=== PATIENT | male | born 1940 | race Caucasian/White ===

== ENCOUNTER 2017-08-27 06:08 | Inpatient (IN) | payer MEDICARE, MEDICAID ==
[~2017-08-27] VITALS: Ht 180.3 cm; Wt 77.7 kg
[~2017-08-27 06:08] MED LIST: ACET-1600 PO; ALPR-475 PO; AMOX-291 PO; CAPT25TA3 PO; CHOL5000 PO; DULO30CA2 PO; FURO-93 PO; HEPA50002 SQ; MORP60TA34 PO; ONDA4TAB13 SL; OXYC20TA2 PO; SENN-87 PO; TEMA15CA6 PO
[2017-08-27] MEDS ORDERED: SODIUM CHLORIDE FLUSH 10ML SYR IVF ONE (07:00)
[2017-08-27 07:47] LABS: BASOPHILS # (AUTO) 0.02 x10^3/uL (0-0.1); BASOPHILS % (AUTO) 0 % (0-1); EOSINOPHILS # (AUTO) 0.03 x10^3/uL (0-0.4); EOSINOPHILS % (AUTO) 0 % (1-7); LYMPHOCYTES % (AUTO) 6 % (22-44); MD NO; MEAN CORPUSCULAR VOLUME 90.8 fL (81-97); MEAN PLATELET VOLUME 9.1 fL (7.4-10.4); MONOCYTES # (AUTO) 0.46 x10^3/uL (0.2-0.8); MONOCYTES % (AUTO) 4 % (2-9); NEUTROPHILS # (AUTO) 10.45 x10^3/uL (1.8-6.8); NEUTROPHILS % (AUTO) 90 % (42-75); PLATELET COUNT 199 x10^3/uL (130-400); RED CELL DISTRIBUTION WIDTH 16.5 % (9.4-14.8)
[2017-08-27 07:57] LABS: ANION GAP 6 mmol/L (5-15); CALCIUM 8.8 mg/dL (8.5-10.1); CHLORIDE 103 mmol/L (98-107); CREATININE 0.95 mg/dL (0.7-1.3)
[2017-08-27 07:58] LABS: ACETONE, SERUM Negative (Negative)
[2017-08-27] MEDS ORDERED: OXYcodone/APAP 5/325MG TABLET PO ONE (08:00)
[2017-08-27] MEDS ORDERED: OXYcodone/APAP 5/325MG TABLET ONE (08:01)
[2017-08-27 08:02] LABS: CULTURE INDICATED? YES; MICROSCOPIC INDICATED
[2017-08-27] MEDS ORDERED: CEFTRIAXONE PMX 1GM/50ML 50 ML IV ONE (08:30)
[2017-08-27] MEDS ORDERED: CEFTRIAXONE PMX 1GM/50ML 50 ML ONE (09:19)
[2017-08-27] MEDS ORDERED: NYSTATIN TOPICAL POWDER 15GM TP ONE (09:30)
[2017-08-27] MEDS ORDERED: LISI-167 PO (10:48)
[2017-08-27] MEDS ORDERED: LISI5TAB7 PO (10:48)
[2017-08-27] MEDS ORDERED: MULT-6 PO (10:48)
[2017-08-27] MEDS ORDERED: ACET-76 PO (10:48)
[2017-08-27] MEDS ORDERED: CHOL5000 PO (10:48)
[2017-08-27 11:45] VITALS: BP 149/85
[2017-08-27] MEDS ORDERED: GUAIFENESIN/DM 200-20MG, 10ML UDC PO PRN (12:00)
[2017-08-27] MEDS ORDERED: morphine SULFATE 10 MG/ML, 1ML IVPush PRN (12:00)
[2017-08-27] MEDS ORDERED: LABETALOL 5MG/ML, 20ML IVPush PRN (12:00)
[2017-08-27] MEDS ORDERED: ONDANSETRON 2MG/ML, 2ML IVPush PRN (12:00)
[2017-08-27] MEDS ORDERED: POLYETHYLENE GLYCOL 17 GM PACKET PO PRN (12:00)
[2017-08-27] MEDS: OXYcodone IR 5MG TABLET PO PRN ×3 (12:39→21:14)
[2017-08-27 13:20] LABS: HEMOGLOBIN A1C 6.7 % (4.2-6.3)
[2017-08-27] MEDS: morphine SULFATE 60 MG TABLET.ER PO SCH (13:58)
[2017-08-27] MEDS: ONDANSETRON ODT 4 MG PO PRN ×2 (15:06→22:41)
[2017-08-27] MEDS: MEROPENEM 1 GM in SODIUM CHLORIDE 0.9% 100 ML IV SCH ×2 (15:06→23:13)
[2017-08-27] MEDS: SODIUM CHLORIDE 0.9% 1,000 ML IV SCH (15:06)
[2017-08-27 15:18] VITALS: BP 171/86
[2017-08-27] MEDS ORDERED: morphine SULFATE 60 MG TABLET.ER PO SCH (21:00)
[2017-08-27 21:07] VITALS: BP 156/82
[2017-08-27] MEDS: AMOXICILLIN/CLAV 875-125MG TABLET PO SCH (21:14)
[2017-08-27] MEDS: DULOXETINE 30 MG CAPSULE.DR PO SCH (21:14)
[2017-08-27] MEDS: TEMAZEPAM 15 MG CAPSULE PO SCH (21:14)
[2017-08-27] MEDS: NYSTATIN OINT 15GM TP SCH (22:41)
[2017-08-28 00:55] VITALS: BP 160/84
[2017-08-28] MEDS: morphine SULFATE 60 MG TABLET.ER PO SCH ×2 (01:55→14:00)
[2017-08-28] MEDS: SODIUM CHLORIDE 0.9% 1,000 ML IV SCH ×3 (01:57→22:37)
[2017-08-28] MEDS: ONDANSETRON ODT 4 MG PO PRN ×4 (02:53→22:37)
[2017-08-28 05:33] LABS: CHLORIDE 104 mmol/L (98-107)
[2017-08-28 05:37] LABS: BASOPHILS % (AUTO) 0 % (0-1); EOSINOPHILS # (AUTO) 0.01 x10^3/uL (0-0.4); EOSINOPHILS % (AUTO) 0 % (1-7); LYMPHOCYTES # (AUTO) 0.58 x10^3/uL (1-3.4); LYMPHOCYTES % (AUTO) 8 % (22-44); MD NO; MEAN CORPUSCULAR HEMOGLOBIN 30.1 pg (27.5-34.5); MEAN CORPUSCULAR HGB CONC 33.2 g/dL (33.2-36.2); MEAN CORPUSCULAR VOLUME 90.7 fL (81-97); MEAN PLATELET VOLUME 8.7 fL (7.4-10.4); MONOCYTES # (AUTO) 0.29 x10^3/uL (0.2-0.8); MONOCYTES % (AUTO) 4 % (2-9); NEUTROPHILS # (AUTO) 6.77 x10^3/uL (1.8-6.8); NEUTROPHILS % (AUTO) 89 % (42-75); PLATELET COUNT 183 x10^3/uL (130-400); RED CELL DISTRIBUTION WIDTH 15.6 % (9.4-14.8)
[2017-08-28 05:48] LABS: ALANINE AMINOTRANSFERASE 14 U/L (12-78); ALBUMIN 3.3 g/dL (3.4-5.0); ALKALINE PHOSPHATASE 75 U/L (45-117); ANION GAP 6 mmol/L (5-15); BILIRUBIN,TOTAL 0.9 mg/dL (0.2-1.0); CALCIUM 8.3 mg/dL (8.5-10.1); CREATININE 0.66 mg/dL (0.7-1.3); TOTAL PROTEIN 6.6 g/dL (6.4-8.2)
[2017-08-28] MEDS: OXYcodone IR 5MG TABLET PO PRN ×4 (06:00→21:13)
[2017-08-28] MEDS: MEROPENEM 1 GM in SODIUM CHLORIDE 0.9% 100 ML IV SCH ×3 (06:36→22:37)
[2017-08-28 08:30] VITALS: BP 166/75
[2017-08-28] MEDS: SENNOSIDES 8.6 MG TABLET PO SCH (09:00)
[2017-08-28] MEDS: DULOXETINE 30 MG CAPSULE.DR PO SCH ×2 (09:41→21:13)
[2017-08-28] MEDS: LISINOPRIL 10 MG TABLET PO SCH (09:41)
[2017-08-28] MEDS: MULTIVITAMIN 1 TABLET PO SCH (09:41)
[2017-08-28] MEDS: CHOLECALCIFEROL 1,000 UNIT TABLET PO SCH (09:42)
[2017-08-28] MEDS: AMOXICILLIN/CLAV 875-125MG TABLET PO SCH ×2 (09:42→21:13)
[2017-08-28] MEDS: NYSTATIN OINT 15GM TP SCH ×3 (09:42→21:14)
[2017-08-28] MEDS: SENNA/DOCUSATE TABLET PO SCH (09:42)
[2017-08-28 14:09] VITALS: BP 158/74
[2017-08-28 18:37] VITALS: BP 157/84
[2017-08-28] MEDS: TEMAZEPAM 15 MG CAPSULE PO SCH (21:13)
[2017-08-29] MEDS: morphine SULFATE 60 MG TABLET.ER PO SCH ×3 (02:00→20:32)
[2017-08-29 02:11] VITALS: BP 158/85
[2017-08-29 05:06] LABS: BASOPHILS # (AUTO) 0.02 x10^3/uL (0-0.1); BASOPHILS % (AUTO) 0 % (0-1); EOSINOPHILS # (AUTO) 0.08 x10^3/uL (0-0.4); EOSINOPHILS % (AUTO) 1 % (1-7); LYMPHOCYTES # (AUTO) 1.03 x10^3/uL (1-3.4); LYMPHOCYTES % (AUTO) 15 % (22-44); MD NO; MEAN CORPUSCULAR HEMOGLOBIN 30.6 pg (27.5-34.5); MEAN CORPUSCULAR HGB CONC 33.4 g/dL (33.2-36.2); MEAN CORPUSCULAR VOLUME 91.5 fL (81-97); MONOCYTES # (AUTO) 0.42 x10^3/uL (0.2-0.8); MONOCYTES % (AUTO) 6 % (2-9); NEUTROPHILS # (AUTO) 5.41 x10^3/uL (1.8-6.8); NEUTROPHILS % (AUTO) 78 % (42-75); PLATELET COUNT 179 x10^3/uL (130-400); RED BLOOD COUNT 4.03 x10^6/uL (4.38-5.82); RED CELL DISTRIBUTION WIDTH 15.7 % (9.4-14.8)
[2017-08-29 05:20] LABS: ALBUMIN 3.3 g/dL (3.4-5.0); ANION GAP 5 mmol/L (5-15); CALCIUM 8.5 mg/dL (8.5-10.1); CHLORIDE 105 mmol/L (98-107)
[2017-08-29 05:25] LABS: ALANINE AMINOTRANSFERASE 12 U/L (12-78); ALKALINE PHOSPHATASE 67 U/L (45-117); BILIRUBIN,TOTAL 0.9 mg/dL (0.2-1.0); CREATININE 0.65 mg/dL (0.7-1.3); TOTAL PROTEIN 6.3 g/dL (6.4-8.2)
[2017-08-29] MEDS: MEROPENEM 1 GM in SODIUM CHLORIDE 0.9% 100 ML IV SCH ×3 (06:22→22:32)
[2017-08-29 07:23] VITALS: BP 175/87
[2017-08-29] MEDS: AMOXICILLIN/CLAV 875-125MG TABLET PO SCH ×2 (08:14→20:32)
[2017-08-29] MEDS: OXYcodone IR 5MG TABLET PO PRN ×4 (08:14→22:32)
[2017-08-29] MEDS: DULOXETINE 30 MG CAPSULE.DR PO SCH ×2 (08:14→20:32)
[2017-08-29] MEDS: MULTIVITAMIN 1 TABLET PO SCH (08:15)
[2017-08-29] MEDS: SENNA/DOCUSATE TABLET PO SCH (08:15)
[2017-08-29] MEDS: CHOLECALCIFEROL 1,000 UNIT TABLET PO SCH (08:15)
[2017-08-29] MEDS: NYSTATIN OINT 15GM TP SCH ×3 (08:16→22:54)
[2017-08-29] MEDS: SENNOSIDES 8.6 MG TABLET PO SCH (08:16)
[2017-08-29] MEDS: LISINOPRIL 10 MG TABLET PO SCH (08:16)
[2017-08-29] MEDS: SODIUM CHLORIDE 0.9% 1,000 ML IV SCH ×2 (08:16→19:07)
[2017-08-29] MEDS: ONDANSETRON ODT 4 MG PO PRN ×2 (08:24→19:07)
[2017-08-29 09:53] VITALS: BP 165/86
[2017-08-29 14:00] VITALS: BP 157/78
[2017-08-29 19:12] VITALS: BP 163/84
[2017-08-29] MEDS: TEMAZEPAM 15 MG CAPSULE PO SCH (20:32)
[2017-08-30 01:33] VITALS: BP 149/79
[2017-08-30] MEDS: OXYcodone IR 5MG TABLET PO PRN ×5 (03:34→23:30)
[2017-08-30 05:29] LABS: BASOPHILS # (AUTO) 0.02 x10^3/uL (0-0.1); BASOPHILS % (AUTO) 0 % (0-1); EOSINOPHILS # (AUTO) 0.18 x10^3/uL (0-0.4); EOSINOPHILS % (AUTO) 3 % (1-7); LYMPHOCYTES # (AUTO) 1.21 x10^3/uL (1-3.4); LYMPHOCYTES % (AUTO) 19 % (22-44); MD NO; MEAN CORPUSCULAR HEMOGLOBIN 30.8 pg (27.5-34.5); MEAN CORPUSCULAR HGB CONC 33.4 g/dL (33.2-36.2); MEAN CORPUSCULAR VOLUME 92.2 fL (81-97); MEAN PLATELET VOLUME 8.8 fL (7.4-10.4); MONOCYTES # (AUTO) 0.49 x10^3/uL (0.2-0.8); MONOCYTES % (AUTO) 8 % (2-9); NEUTROPHILS # (AUTO) 4.51 x10^3/uL (1.8-6.8); NEUTROPHILS % (AUTO) 70 % (42-75); PLATELET COUNT 175 x10^3/uL (130-400); RED BLOOD COUNT 3.67 x10^6/uL (4.38-5.82); RED CELL DISTRIBUTION WIDTH 15.2 % (9.4-14.8)
[2017-08-30] MEDS: MEROPENEM 1 GM in SODIUM CHLORIDE 0.9% 100 ML IV SCH ×3 (05:36→23:27)
[2017-08-30 05:47] LABS: CHLORIDE 105 mmol/L (98-107)
[2017-08-30 05:51] LABS: ANION GAP 7 mmol/L (5-15); CALCIUM 8.1 mg/dL (8.5-10.1); CREATININE 0.64 mg/dL (0.7-1.3)
[2017-08-30] MEDS ORDERED: POTASSIUM CHLORIDE 20 MEQ TAB.ER.PRT PO ONE (07:00)
[2017-08-30 07:19] VITALS: BP 143/74
[2017-08-30] MEDS: SENNOSIDES 8.6 MG TABLET PO SCH (09:00)
[2017-08-30] MEDS: morphine SULFATE 60 MG TABLET.ER PO SCH ×2 (09:00→20:55)
[2017-08-30] MEDS: SODIUM CHLORIDE 0.9% 1,000 ML IV SCH ×2 (09:13→19:28)
[2017-08-30] MEDS: MULTIVITAMIN 1 TABLET PO SCH (09:21)
[2017-08-30] MEDS: DULOXETINE 30 MG CAPSULE.DR PO SCH ×2 (09:21→19:21)
[2017-08-30] MEDS: CHOLECALCIFEROL 1,000 UNIT TABLET PO SCH (09:21)
[2017-08-30] MEDS: LISINOPRIL 10 MG TABLET PO SCH (09:21)
[2017-08-30] MEDS: AMOXICILLIN/CLAV 875-125MG TABLET PO SCH ×2 (09:26→19:21)
[2017-08-30] MEDS: SENNA/DOCUSATE TABLET PO SCH (09:29)
[2017-08-30] MEDS: NYSTATIN OINT 15GM TP SCH ×3 (09:29→19:22)
[2017-08-30] MEDS: ONDANSETRON ODT 4 MG PO PRN (13:04)
[2017-08-30 13:17] VITALS: BP 139/72
[2017-08-30] MEDS ORDERED: AMOX-291 PO (15:33)
[2017-08-30] MEDS ORDERED: ERTA1VIA IV (15:33)
[2017-08-30] MEDS ORDERED: NYST15OI TP (15:35)
[2017-08-30] MEDS ORDERED: METF500T PO (15:36)
[2017-08-30 18:47] VITALS: BP 192/93
[2017-08-30] MEDS: TEMAZEPAM 15 MG CAPSULE PO SCH (20:55)
[2017-08-31 01:21] VITALS: BP 114/57
[2017-08-31] MEDS: OXYcodone IR 5MG TABLET PO PRN ×2 (03:44→09:07)
[2017-08-31] MEDS: SODIUM CHLORIDE 0.9% 1,000 ML IV SCH (05:26)
[2017-08-31 05:35] LABS: ALBUMIN 2.9 g/dL (3.4-5.0); ANION GAP 6 mmol/L (5-15); CALCIUM 8.4 mg/dL (8.5-10.1); CHLORIDE 107 mmol/L (98-107)
[2017-08-31 05:37] LABS: CREATININE 0.62 mg/dL (0.7-1.3)
[2017-08-31 08:26] VITALS: BP 178/84
[2017-08-31] MEDS: morphine SULFATE 60 MG TABLET.ER PO SCH (09:00)
[2017-08-31] MEDS: SENNOSIDES 8.6 MG TABLET PO SCH (09:00)
[2017-08-31] MEDS: LISINOPRIL 10 MG TABLET PO SCH (09:05)
[2017-08-31] MEDS: AMOXICILLIN/CLAV 875-125MG TABLET PO SCH (09:07)
[2017-08-31] MEDS: DULOXETINE 30 MG CAPSULE.DR PO SCH (09:07)
[2017-08-31] MEDS: MULTIVITAMIN 1 TABLET PO SCH (09:07)
[2017-08-31] MEDS: MEROPENEM 1 GM in SODIUM CHLORIDE 0.9% 100 ML IV SCH (09:08)
[2017-08-31] MEDS: SENNA/DOCUSATE TABLET PO SCH (09:08)
[2017-08-31] MEDS: NYSTATIN OINT 15GM TP SCH (09:09)
[2017-08-31] MEDS: CHOLECALCIFEROL 1,000 UNIT TABLET PO SCH (09:09)
[2017-08-31] MEDS: ONDANSETRON ODT 4 MG PO PRN (09:44)
== END 2017-08-31 11:05 | DRG 700 ==
LOC: ED 09:16 → EDIP 09:17 → ED 09:46 → 3NE 11:38
PROVIDERS: ADMIT Internal Medicine; ATTEND Internal Medicine
PROC: 0T9B70Z Drainage of Bladder with Drainage Device, Via Natural or Artificial Opening (ICD-10-PCS; principal; 2017-08-27)
DX: T83.511A Infection and inflammatory reaction due to indwelling urethral catheter, initial encounter (principal); E11.65 Type 2 diabetes mellitus with hyperglycemia; N31.9 Neuromuscular dysfunction of bladder, unspecified; F20.9 Schizophrenia, unspecified; G20 Parkinson's disease; B37.2 Candidiasis of skin and nail; D64.9 Anemia, unspecified; G89.29 Other chronic pain; I16.0 Hypertensive urgency; F03.90 Unspecified dementia, unspecified severity, without behavioral disturbance, psychotic disturbance, mood disturbance, and anxiety; F41.1 Generalized anxiety disorder; Z16.12 Extended spectrum beta lactamase (ESBL) resistance; Z66 Do not resuscitate; F32.9 Major depressive disorder, single episode, unspecified; F41.9 Anxiety disorder, unspecified; M19.90 Unspecified osteoarthritis, unspecified site; D72.829 Elevated white blood cell count, unspecified; B95.2 Enterococcus as the cause of diseases classified elsewhere; Z86.73 Personal history of transient ischemic attack (TIA), and cerebral infarction without residual deficits; Z87.440 Personal history of urinary (tract) infections; Z87.891 Personal history of nicotine dependence
CPT/HCPCS: 36415; 80048; 80053; 81001; 82010; 82040; 82140; 83036; 83605; 83735; 85025; 87040; 87077; 87086; 87186; J0696; J2185; Q0162; J7030